=== PATIENT | female | born 1950 | race Caucasian/White ===

== ENCOUNTER 2021-01-07 21:27 | Emergency (ER) | payer MEDICARE, BC ==
--- NOTE | 2021-01-07 21:46 | ED Physician Documentation ---
PD HPI UPPER EXT INJURY - Stated complaint Stated Complaint: GLF/RT SHOULDER INJ - History obtained from History obtained from: Patient - History of Present Illness Location: Right, Shoulder Type of injury: Fall Where injury occurred: A house / apartment Timing - onset: Enter time (18:30) Timing - details: Abrupt onset Pain level max: 6 Pain level now: 2 Improved by: Rest Worsened by: Moving, Palpating Associated symptoms: No: Weakness, Numbness, Tingling, Swelling, Discolored Contributing factors: No: Anticoagulated Similar symptoms before: Has not had sx before Recently seen: Not recently seen - Additonal information Additional information: visiting from [place]. at approximately 6:30 PM today she was sitting in a chair and the leg of the chair broke, causing her to fall onto her right side. She experienced sudden onset right shoulder pain which is distinctly worse with palpation, movement. she is right hand dominant Review of Systems Musculoskeletal: reports: Joint pain. denies: Neck pain, Back pain Neurologic: denies: Focal weakness, Numbness, Head injury PD PAST MEDICAL HISTORY - Past Medical History Past Medical History: Yes Cardiovascular: High cholesterol - Present Medications Home Medications: Ambulatory Orders Medication Instructions Recorded Confirmed Ezetimibe [Zetia] 10 mg PO DAILY 01/07/21 01/07/21 Gabapentin [Neurontin] 300 mg PO DAILY 01/07/21 01/07/21 Oxycodone HCl/Acetaminophen 1 - 2 each PO Q6H PRN #14 tablet 01/08/21 [Percocet 5-325 mg Tablet] - Allergies Allergies/Adverse Reactions: Allergies Allergy/AdvReac Type Severity Reaction Status Date / Time Zoksgad-Too-Wjd Reductase AdvReac Unknown Verified 01/07/21 21:46 Inhibitor PD ED PE NORMAL - Vitals Vital signs reviewed: Yes - General General: Alert and oriented X 3, No acute distress, Well developed/nourished - Neck Neck: No bony TTP PD ED PE EXPANDED - Extremities Extremities: Tenderness, Limited ROM, Right shoulder. No: Deformity, Swelling Results - Vitals Vitals: Vital Signs - 24 hr 01/07/21 01/07/21 01/07/21 21:41 22:29 22:40 Temperature 36.9 C Heart Rate 86 85 Respiratory 18 16 17 Rate Blood Pressure 154/80 H 147/83 H O2 Saturation 97 97 01/08/21 01/08/21 00:04 00:21 Temperature Heart Rate 82 Respiratory 16 16 Rate Blood Pressure 155/86 H O2 Saturation 98 Oxygen O2 Source Room air - Rads (name of study) right shoulder xrays Radiology: Prelim report reviewed, See rad report CT right shoulder Radiology: Prelim report reviewed, See rad report PD MEDICAL DECISION MAKING - ED course Complexity details: reviewed results, re-evaluated patient, considered differential, d/w patient ED course: presents after fall onto right side which caused sudden onset right shoulder pain. plain film xrays right shoulder interpreted as no acute osseous lesion, but she has significant pain and limitation of ROM. She is visiting from [place] and will not be returning home for 10 days, making expeditious follow up unlikely and thus CT shoulder performed to better ascertain whether there is a fracture presents. CT is interpreted as positive for right shoulder greater tuberosity fracture. Sling is placed and given oxycodone for analgesia. results d/w patient. Departure - Departure Disposition: 01 Home, Self Care Clinical Impression: Closed fracture of right proximal humerus Condition: Good Instructions: ED Fx Shoulder, ED Sling Prescriptions: Oxycodone HCl/Acetaminophen [Percocet 5-325 mg Tablet] 1 - 2 each PO Q6H PRN #14 tablet PRN Reason: pain Comments: Follow up with orthopedic surgeon in 7-10 days for reevaluation. You have a NONDISPLACED FRACTURE INVOLVING THE GREATER TUBEROSITY OF THE PROXIMAL RIGHT HUMERUS on CT scan. Discharge Date/Time: 01/08/21 00:50
[2021-01-07] MEDS ORDERED: oxyCODONE 5 MG TABLET PO STA (21:47)
--- NOTE | 2021-01-07 22:15 | XRAY Report ---
PROCEDURE: Shoulder 3 View RT INDICATIONS: R ARM INJURY/PAIN TECHNIQUE: 3 views of the shoulder were acquired. COMPARISON: None. FINDINGS: Bones: No fractures or dislocations. No suspicious bony lesions. Visualized ribs appear intact. Se gwen right glenohumeral joint and mild right acromioclavicular joint osteophytosis. Soft tissues: No suspicious soft tissue calcifications. IMPRESSION: No fracture. No acute osseous lesion. If there persistent symptoms or continued clinical concern for pathology, then repeat plain film radiographs (7-10 days) or advanced imaging (CT, MR, bone scan) krysta uld be considered for further evaluation. Reviewed by: Guerline Quinones MD, PhD on 01/07/2021 10:14 PM PDT Approved by: Guerline Quinones MD, PhD on 01/07/2021 10:14 PM PDT Station ID: [id number]
--- NOTE | 2021-01-07 23:52 | CT Report ---
PROCEDURE: UPPER EXTREMITY WO - RT INDICATIONS: fall, right shoulder injury and pain TECHNIQUE: Noncontrast 3 mm axial sections acquired of the right shoulder, with coronal and sagittal reformats. COMPARISON: None. FINDINGS: Image quality: Excellent. Bones: Bones severely osteopenic. Nondisplaced fracture involving the greater tuberosity of the prox imal right humerus. Large marginal osteophyte involving the medial inferior margin of the humeral hea d. Soft tissues: No soft tissue fluid collections. No lymphadenopathy based on size criteria. Visualize d portion of the right lung is clear. IMPRESSION: Nondisplaced fracture involving the greater tuberosity of the proximal right humerus. Reviewed by: Guerline Quinones MD, PhD on 01/07/2021 11:51 PM PDT Approved by: Guerline Quinones MD, PhD on 01/07/2021 11:51 PM PDT Station ID: [id number]
[2021-01-08] MEDS ORDERED: oxyCODONE/ACET 5/325 Prepack 4 PO STA (00:02)
[2021-01-08 00:05] VITALS: BP 155/86
== END 2021-01-08 00:50 | disposition home or self-care (01) ==
LOC: ED 21:27
DX: S42.254A Nondisplaced fracture of greater tuberosity of right humerus, initial encounter for closed fracture (principal); W07.XXXA Fall from chair, initial encounter; Y93.89 Activity, other specified; Y92.009 Unspecified place in unspecified non-institutional (private) residence as the place of occurrence of the external cause
CPT/HCPCS: 73030; 73200; 99283; A9270